=== PATIENT | female | born 1990 | race Caucasian/White ===

== ENCOUNTER 2018-07-11 21:30 | Inpatient (IN) | payer OTHER ==
[~2018-07-11] VITALS: Ht 177.8 cm; Wt 86.2 kg
[~2018-07-11 21:30] MED LIST: CHOL10002 PO; CITA20 PO; CYCL10 PO; Citalopram HBr40 MG PO; ESTR2 PO; IBUP800 PO; Kristalose20 GM PO; LINZESS145 MCG PO; TRAZ100 PO; TRAZ50 PO
[2018-07-11 22:14] LABS: BASOPHILS ABSOLUTE AUTO 0.08 K/mm3 (0.00-0.23); BASOPHILS PERCENT AUTO 1 % (0-2); EOSINOPHILS ABSOLUTE AUTO 0.71 K/mm3 (0.00-0.68); EOSINOPHILS PERCENT AUTO 7 % (0-6); Hematocrit 38.7 % (33.0-51.0); Hemoglobin 12.3 g/dL (11.5-16.0); IMMATURE GRAN ABSOLUTE AUTO 0.02 K/mm3 (0.00-0.10); IMMATURE GRAN PERCENT AUTO 0 % (0-1); LYMPHOCYTES ABSOLUTE AUTO 3.54 K/mm3 (0.84-5.20); LYMPHOCYTES PERCENT AUTO 35 % (21-46); MONOCYTES ABSOLUTE AUTO 0.65 K/mm3 (0.16-1.47); MONOCYTES PERCENT AUTO 6 % (4-13); Mean Corpuscular HGB Conc 31.8 g/dL (31.5-36.5); Mean Corpuscular Volume 94 fL (80-100); NEUTROPHILS ABSOLUTE AUTO 5.12 K/mm3 (1.96-9.15); NEUTROPHILS PERCENT AUTO 51 % (41-73); Platelet Count 257 K/mm3 (150-400); RDW Coefficient Variation 11.9 % (11.7-14.2); White Blood Cell Count 10.12 K/mm3 (4.00-11.30)
[2018-07-11 22:32] LABS: Alanine Aminotransfer (ALT/SGP 37 U/L (12-78); Albumin, Blood 3.7 g/dL (3.4-5.0); Alk Phos 62 U/L (50-136); Anion Gap 7 mmol/L (6-16); Aspartate Aminotrans (AST/SGOT 36 U/L (12-37); Bilirubin, Total 0.2 mg/dL (0.1-1.0); Blood Urea Nitrogen 12 mg/dL (8-24); Bun/Creatinine Ratio 17.4 (12.0-20.0); CO2, Blood 30 mmol/L (21-32); Calcium, Blood 8.8 mg/dL (8.5-10.1); Chloride, Blood 105 mmol/L (98-108); Creatinine, Blood 0.69 mg/dL (0.40-1.00); Globulin, Blood 3.8 g/dL (2.2-4.0); Glomerular Filtration Rate >60 (60-); Glucose, Blood 118 mg/dL (70-99); Potassium, Blood 3.8 mmol/L (3.5-5.5); Sodium, Blood 142 mmol/L (136-145); Total Protein, Blood 7.5 g/dL (6.4-8.2)
[2018-07-12] MEDS ORDERED: CITA20 PO (00:02)
[2018-07-12] MEDS ORDERED: TRAZ50 PO (00:02)
[2018-07-12] MEDS ORDERED: MIRALAX17 GM PO (00:03)
[2018-07-12 01:35] LABS: Source, Urine Clean Catch
[2018-07-12 01:36] LABS: Bilirubin, Urine Neg (Neg); Blood, Urine Neg (Neg); Glucose Qualitative, Urine Neg (Neg); Ketones, Urine Neg (Neg); Leukocyte Esterase, Urine 1+ (Neg); Nitrite, Urine Neg (Neg); Protein, Urine Neg (Neg); Urobilinogen, Urine NORM (Normal)
[2018-07-12 01:48] LABS: Appearance, Urine Clear (Clear); Color, Urine Yellow (P-Yellow)
[2018-07-12 01:49] LABS: Amorphous Light (0-Heavy); Bacteria Mod /hpf; Red Blood Cells, Urine 0-2 /hpf (0-2); Squamous Epithelial Cells Few /hpf (Few)
[2018-07-12 08:05] LABS: Alanine Aminotransfer (ALT/SGP 29 U/L (12-78); Albumin, Blood 3.3 g/dL (3.4-5.0); Alk Phos 55 U/L (50-136); Anion Gap 8 mmol/L (6-16); Aspartate Aminotrans (AST/SGOT 22 U/L (12-37); Bilirubin, Total 0.2 mg/dL (0.1-1.0); Blood Urea Nitrogen 9 mg/dL (8-24); Bun/Creatinine Ratio 12.5 (12.0-20.0); CO2, Blood 27 mmol/L (21-32); Calcium, Blood 8.3 mg/dL (8.5-10.1); Chloride, Blood 109 mmol/L (98-108); Creatinine, Blood 0.72 mg/dL (0.40-1.00); Globulin, Blood 3.2 g/dL (2.2-4.0); Glomerular Filtration Rate >60 (60-); Glucose, Blood 78 mg/dL (70-99); Potassium, Blood 4.1 mmol/L (3.5-5.5); Sodium, Blood 144 mmol/L (136-145); Total Protein, Blood 6.5 g/dL (6.4-8.2)
--- NOTE | 2018-07-12 10:00 | NUR ---
PT TO DAY SURGERY
--- NOTE | 2018-07-12 12:18 | NUR ---
07/12/18 1218 Mary Lee 0.5% BUPIVICAINE DURING SURGERY. ANCEF [address] LAMAS AT 1141 PRIOR TO START.
--- NOTE | 2018-07-12 14:10 | NUR ---
1350 PATIENT RETURNED FROM PACU. AROUSABLE BUT DROWSY. PATIENT WITH SIGNIFICANT SHIVERING. INSTRUCTED TO DEEP BREATH WITH IMPROVEMENT. VSS.
--- NOTE | 2018-07-13 08:37 | NUR ---
SHIFT SUMMARY PT A&O X4 T/O SHIFT. POD#1 LAP JOSÉ; LAP SITES CDI. BTX4; PT REPORTS FLATUS. ABD SOFT; PT TOLERATING DIET WELL. PAIN MANGED PER EMAR. PT FATHER TO VISIT AT START OF SHIFT. PT INDEPENDENT IN ROOM; PT REPORTED ORAL/PERSONAL CARE. SCD'S TO BLE'S. CALL LIGHT IN REACH; PT DEMONSTRATES USE. REPORT GIVEN TO DAY SHIFT RN.
--- NOTE | 2018-07-13 08:43 | NUR ---
SHIFT SUMMARY PT A&O X4 T/O SHIFT. NO ACUTE CHANGES. LS CLEAR; PT DENIES SOB AND CP. PT C/O NAUSEA AND ABD PAIN; PAIN MANGED PER EMAR. NON-PHARM INTERVENTIONS FOR NAUSEA MANAGEMENT. BT X4; ABD SOFT. PT INDEPENDENT IN ROOM AND PERSONAL HYGIENE. SHOWER X1. NO BM DURING SHIFT; PT AWARE OF NEED FOR SAMPLE. CALL LIGHT IN REACH; PT DEMONSTRATES USE. REPORT GIVEN TO DAY SHIFT RN.
[2018-07-13] MEDS ORDERED: HYDR1TAB94 PO (13:32)
--- NOTE | 2018-07-13 13:55 | NUR ---
DIACHARGE: PT DC TO HOME AT THIS TIME WITH FAMILY. IV DC'D WNL. VERBALIZED UNDERSTANDING OF MEDICATIONS, FOLLOW UP AND INSTRUCTIONS. SCRIPT GIVEN. PT LEFT AMBULATORY TO CAR WITH BELONGINGS.
== END 2018-07-13 14:00 | disposition home or self-care (01) | DRG 419 ==
LOC: ER 21:30 → ERHOLD 07-12 01:16 → SURS 07-12 08:42
PROVIDERS: Physician Assistant; ADMIT Surgery
PROC: BF13YZZ Fluoroscopy of Gallbladder and Bile Ducts using Other Contrast (ICD-10-PCS; 2018-07-12)
PROC: 0FT44ZZ Resection of Gallbladder, Percutaneous Endoscopic Approach (ICD-10-PCS; principal; 2018-07-12 11:15)
DX: K85.10 Biliary acute pancreatitis without necrosis or infection (principal); K80.20 Calculus of gallbladder without cholecystitis without obstruction; F32.9 Major depressive disorder, single episode, unspecified; Z79.899 Other long term (current) drug therapy; Z88.8 Allergy status to other drugs, medicaments and biological substances
CPT/HCPCS: 36415; 74300; 76705; 80053; 81001; 81025; 83690; 85025; 87086; 88304; 96361; 96365; 99285-25; C1729; J0295; J0690; J1100; J1885; J2250; J2370; J2405; J2710; J3010; J7030; J7120

== ENCOUNTER 2018-08-22 11:36 | Day surgery (SDC) | payer OTHER ==
[~2018-08-22] VITALS: Ht 177.8 cm; Wt 89.2 kg
[~2018-08-22 11:36] MED LIST changes: +HYDR1TAB94 PO; +MIRALAX17 GM PO
== END 2018-08-22 13:55 | disposition home or self-care (01) ==
LOC: ORSCSDS 11:36
PROVIDERS: Surgery
PROC: 0DJD8ZZ Inspection of Lower Intestinal Tract, Via Natural or Artificial Opening Endoscopic (ICD-10-PCS; principal; 2018-08-22 13:00)
DX: K62.5 Hemorrhage of anus and rectum (principal); K64.8 Other hemorrhoids; R10.30 Lower abdominal pain, unspecified; K59.09 Other constipation; F32.9 Major depressive disorder, single episode, unspecified; F41.9 Anxiety disorder, unspecified; Z79.899 Other long term (current) drug therapy
CPT/HCPCS: J2704; J7120

== ENCOUNTER → 2020-02-11 | Outpatient (CLI) | payer OTHER ==
[2020-02-11 12:01] LABS: Source, Urine Clean Catch
[2020-02-11 16:07] LABS: Bacteria Mod /hpf; Mucus Mod (0-Heavy); Red Blood Cells, Urine 0-2 /hpf (0-2); Squamous Epithelial Cells Few /hpf (Few)
== END | disposition home or self-care (01) ==
LOC: LAB SHORT 09:30 → LAB 09:30
PROVIDERS: Nurse Practitioner
DX: R55 Syncope and collapse (principal); R51.9 Headache, unspecified; G89.29 Other chronic pain
CPT/HCPCS: 81015

== ENCOUNTER 2020-02-12 13:17 | Emergency (ER) | payer OTHER ==
[~2020-02-12] VITALS: Ht 177.8 cm; Wt 78.0 kg
[2020-02-12 15:40] LABS: BASOPHILS ABSOLUTE AUTO 0.05 K/mm3 (0.00-0.23); BASOPHILS PERCENT AUTO 1 % (0-2); EOSINOPHILS ABSOLUTE AUTO 0.23 K/mm3 (0.00-0.68); EOSINOPHILS PERCENT AUTO 2 % (0-6); Hematocrit 38.5 % (33.0-51.0); Hemoglobin 12.2 g/dL (11.5-16.0); IMMATURE GRAN ABSOLUTE AUTO 0.02 K/mm3 (0.00-0.10); IMMATURE GRAN PERCENT AUTO 0 % (0-1); LYMPHOCYTES ABSOLUTE AUTO 1.28 K/mm3 (0.84-5.20); LYMPHOCYTES PERCENT AUTO 12 % (21-46); MONOCYTES PERCENT AUTO 5 % (4-13); Mean Corpuscular HGB Conc 31.7 g/dL (31.5-36.5); Mean Corpuscular Volume 95 fL (80-100); NEUTROPHILS ABSOLUTE AUTO 8.53 K/mm3 (1.96-9.15); NEUTROPHILS PERCENT AUTO 80 % (41-73); Platelet Count 213 K/mm3 (150-400); RDW Coefficient Variation 11.9 % (11.7-14.2); RDW Standard Deviation 41.3 fL (35.1-46.3); Red Blood Cell Count 4.07 M/mm3 (3.80-5.20); White Blood Cell Count 10.61 K/mm3 (4.00-11.30)
[2020-02-12 15:57] LABS: Alanine Aminotransfer (ALT/SGP 28 U/L (12-78); Albumin, Blood 3.8 g/dL (3.4-5.0); Albumin/Globulin Ratio 1.1 (0.8-1.8); Alk Phos 51 U/L (50-136); Anion Gap 8 mmol/L (6-16); Aspartate Aminotrans (AST/SGOT 19 U/L (12-37); Bilirubin, Total 0.3 mg/dL (0.1-1.0); Blood Urea Nitrogen 9 mg/dL (8-24); Bun/Creatinine Ratio 14.1 (12.0-20.0); CO2, Blood 26 mmol/L (21-32); Chloride, Blood 107 mmol/L (98-108); Creatinine, Blood 0.64 mg/dL (0.40-1.00); Globulin, Blood 3.5 g/dL (2.2-4.0); Glomerular Filtration Rate >60 (60-); Glucose, Blood 81 mg/dL (70-99); Potassium, Blood 3.8 mmol/L (3.5-5.5); Sodium, Blood 141 mmol/L (136-145); Total Protein, Blood 7.3 g/dL (6.4-8.2)
== END 2020-02-12 16:43 | disposition home or self-care (01) ==
LOC: ER 13:17
PROVIDERS: Physician Assistant
DX: G43.909 Migraine, unspecified, not intractable, without status migrainosus (principal); F32.9 Major depressive disorder, single episode, unspecified; Z91.09 Other allergy status, other than to drugs and biological substances; Z91.02 Food additives allergy status; Z79.899 Other long term (current) drug therapy; Z79.3 Long term (current) use of hormonal contraceptives
CPT/HCPCS: 36415; 70450; 80053; 85025; 96361; 96374; 96375; 99284-25; J0780; J1100; J1200; J1885; J7030

== ENCOUNTER 2021-11-09 19:47 | Emergency (ER) | payer OTHER ==
[~2021-11-09] VITALS: Ht 175.3 cm; Wt 70.8 kg
== END 2021-11-09 20:41 | disposition home or self-care (01) ==
LOC: ER 19:47
DX: S46.001A Unspecified injury of muscle(s) and tendon(s) of the rotator cuff of right shoulder, initial encounter (principal); X58.XXXA Exposure to other specified factors, initial encounter; Z91.09 Other allergy status, other than to drugs and biological substances; Z91.048 Other nonmedicinal substance allergy status; Z79.899 Other long term (current) drug therapy
CPT/HCPCS: 99283